=== PATIENT | female | born 1960 | race Caucasian/White ===

== ENCOUNTER 2016-03-19 15:49 | Outpatient (CLI) | payer OTHER ==
--- NOTE | 2016-03-19 17:13 | DIAGNOSTIC IMAGING REPORT ---
PROCEDURE: XR WRIST MIN 3 VIEWS - LEFT INDICATION: LEFT THUMB PAIN TECHNIQUE: Four views of the left wrist. COMPARISON: None. FINDINGS: There is osteoarthritis involving the first carpal metacarpal joint and the scaphomultangular joint. There is a spur on the scaphoid bone. IMPRESSION: 1. 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
== END 2016-03-19 23:00 ==
LOC: XR SRH 15:49
DX: M18.9 Osteoarthritis of first carpometacarpal joint, unspecified (principal)